=== PATIENT | male | born 1950 | race Caucasian/White ===

== ENCOUNTER 2021-08-10 07:17 | Outpatient (CLI) | payer MEDICARE, SELFPAY ==
--- NOTE | ~2021-08-10 | US_ITS ---
EXAMINATION: US right upper quadrant DATE: 08/10/2021 08:16 INDICATION: Abnormal liver function tests TECHNIQUE: Multiple grayscale and Doppler ultrasound images of the abdomen were obtained. COMPARISON: None available FINDINGS: Bowel gas obscures visualization of the pancreas. The visualized portions of the pancreas a re unremarkable. The liver demonstrates increased echogenicity, heterogenous echotexture, and decreas ed through transmission. There is a 1.4 cm cyst of the right hepatic lobe. No surface nodularity. Nor mal hepatopetal flow in the main portal vein. Stones are present in the nondistended gallbladder. The re is no gallbladder wall thickening or pericholecystic fluid. The normal common bile duct measures 3 mm. There was no sonographic Lau sign. IMPRESSION: 1. Diffuse hepatic steatosis. 2. Cholelithiasis without evidence of cholecystitis. Reviewed, dictated and finalized at location B.
== END 2021-08-10 07:18 | disposition home or self-care (01) ==
PROVIDERS: PCP Family Medicine; Visit Provider Family Medicine
DX: R79.89 Other specified abnormal findings of blood chemistry (principal); K76.0 Fatty (change of) liver, not elsewhere classified; K80.20 Calculus of gallbladder without cholecystitis without obstruction
CPT/HCPCS: 76705

== ENCOUNTER 2023-03-12 00:44 | Day surgery (SDC) | payer MEDICARE, SELFPAY ==
[2023-03-04 14:13] VITALS: BMI 26.5
--- NOTE | 2023-03-11 11:22 | PM.HPGS ---
History of Present Illness History of Present Illness Consent: Risks, benefits, and alternatives have been discussed and questions answered. Patient agrees to proceed with procedure. Chief complaint: hx colon polyps Narrative: Ubaldo Vang is a 72 year old male who was referred for colon cancer screening. Five years ago he had a colonoscopy with removal of 3 polyps, at least 1 which was an adenomatous polyp. Review of Systems Review of Systems: All systems reviewed & are unremarkable except as noted in HPI and below PMFSH Past Medical History Medical History IFG (impaired fasting glucose) IFG (impaired fasting glucose) Obesity Surgical History Surgical History History of inguinal hernia repair left Family History Family History Father Family history of cardiovascular disease Other Family history of malignant neoplasm Social History Social History Smoking status: Never smoker Second hand tobacco smoke exposure: No Alcohol intake: current Drinks per week: 5 Substance use: never Substance use type: does not use Living arrangements: with family Occupation/Education: retired Gender identity (if verbalized by the patient): Male Spiritual care concerns: No Meds Home Medications and Allergies Home Medications Medication Instructions Recorded Confirmed Type aspirin 81 mg tablet,delayed 81 mg PO DAILY 06/16/20 03/12/23 History release lisinopril 40 mg tablet See Rx Instructions .Route 10/08/22 03/12/23 Rx .COMPLEX #180 tabs Allergies Allergy/AdvReac Type Severity Reaction Status Date / Time No Known Allergies Allergy Verified 03/12/23 06:40 Exam Const: General: alert Orientation/consciousness: patient oriented x3 Resp: Auscultation: clear to auscultation bilaterally Cardio: Rhythm: regular rhythm GI: GI Palp: Yes Soft to palpation and No Tenderness to palpation present (GI) Neuro: General: patient oriented x3 Assessment and Plan Assessment and plan (1) Colon cancer screening: Code(s): Z12.11 - Encounter for screening for malignant neoplasm of colon Status: Acute Assessment and Plan: Colonoscopy with possible biopsy or polypectomy or cautery or injection of substances.
[2023-03-12 06:28] VITALS: BP 152/76; PULSE 72; RESP 20; TEMP 36.3; O2SAT 98
[2023-03-12] MEDS: LACTATED RINGERS 1,000 ML 150 ML IV CONT (06:39)
--- NOTE | 2023-03-12 07:04 | WPDANESEPPF ---
Anes - Initial Pre Proc Eval Procedure: Operation Date: 03/12/23 07:30 Proposed Procedures p Colonoscopy - Vamsi Arita MD Date/Time: 03/12/23 07:04 Surgeon: Vamsi Arita MD Pre Op Diagnosis: hx colon polyps Patient Data Age: 72 Gender: M Height: 1.78 m Weight: 83.3 kg Last Vital Signs Temp 36.3 C L 03/12/23 06:28 Pulse 72 03/12/23 06:28 Resp 20 03/12/23 06:28 BP 152/76 H 03/12/23 06:28 Pulse Ox 98 03/12/23 06:28 O2 Del Method Room Air 03/12/23 06:28 Allergies Allergy/AdvReac Type Severity Reaction Status Date / Time No Known Allergies Allergy Verified 03/12/23 06:40 Home Medications Medication Instructions Recorded Confirmed Type aspirin 81 mg tablet,delayed 81 mg PO DAILY 06/16/20 03/12/23 History release lisinopril 40 mg tablet See Rx Instructions .Route 10/08/22 03/12/23 Rx .COMPLEX #180 tabs Patient hx anesthesia problems: none Family hx anesthesia problems: none Results Review: All pre-operative results and documents have been reviewed as part of the pre-operative evaluation. [facility] Past Medical History Medical History (Updated 03/12/23 @ 07:05 by Tod Rodriguez MD) Essential (primary) hypertension IFG (impaired fasting glucose) Obesity Surgical History Surgical History History of inguinal hernia repair left Family History Family History Father Family history of cardiovascular disease Other Family history of malignant neoplasm Social History Social History Smoking status: Never smoker Second hand tobacco smoke exposure: No Alcohol intake: current Drinks per week: 5 Substance use: never Substance use type: does not use Living arrangements: with family Occupation/Education: retired Gender identity (if verbalized by the patient): Male Spiritual care concerns: No Anes - Eval Final PreProcedure Day of Procedure 03/12/23 07:04 Patient weight: overweight Heart: regular rate and rhythm Lungs: clear to auscultation and normal air movement Airway: Mallampati scale class II Neurological: alert and oriented Last oral intake: >/= 8 hours ASA classification: II Emergent: no Anesthetic plan: proceed Anesthesia type and monitoring: general GIVS Results Review: All pre-operative results and documents have been reviewed as part of the pre-operative evaluation. Informed Consent: The patient's anesthetic plan and its attendant risks and benefits were discussed with the patient/family/POA. Questions were solicited and answers provided to the satisfaction of the patient/family/POA.
[2023-03-12 07:48] VITALS: BP 100/73; PULSE 57; RESP 23; O2SAT 98
[2023-03-12 07:58] VITALS: BP 114/81; PULSE 57; RESP 22; O2SAT 98
[2023-03-12 08:08] VITALS: BP 123/75; PULSE 55; RESP 18; O2SAT 98
== END 2023-03-12 08:18 | disposition home or self-care (01) ==
PROVIDERS: PCP Family Medicine; Visit Provider Internal Medicine Gastroenterology
PROC: 0DJD8ZZ Inspection of Lower Intestinal Tract, Via Natural or Artificial Opening Endoscopic (ICD-10-PCS; CPT 45378; principal; 2023-03-12 07:30)
DX: Z12.11 Encounter for screening for malignant neoplasm of colon (principal); K64.8 Other hemorrhoids; Z86.010 Personal history of colon polyps; I10 Essential (primary) hypertension; Z79.82 Long term (current) use of aspirin
CPT/HCPCS: G0105; J2001; J2704; J7120